=== PATIENT | female | born 1950 | race Caucasian/White ===

== ENCOUNTER 2020-01-28 20:41 | Observation (INO) | payer MEDICARE, SELFPAY ==
--- NOTE | ~2020-01-28 | CT_ITS ---
EXAMINATION: CT brain wo con DATE: 01/28/2020 22:34 INDICATION: Dizziness TECHNIQUE: Computed tomography (CT) of the head was performed without intravenous contrast. Sagittal and coronal reconstructions were performed. The mA was adjusted according to patient size. Iterative reconstruction technique was employed. The dose-length product was 605.33 mGy-cm. COMPARISON: None FINDINGS: There is mild scattered white matter hypoattenuation consistent with chronic small vessel ischemic di sease. No acute intracranial hemorrhage, acute infarction or abnormal extra axial fluid collection. V entricles are normal and symmetric. No mass/mass effect. The orbits, paranasal sinuses and mastoid ai r cells are normal. Intracranial calcified cerebral atherosclerosis is noted. IMPRESSION: 1. No acute intracranial process. 2. Mild scattered white matter hypoattenuation consistent with chronic small vessel ischemic disease. Reviewed, dictated and finalized at location A. IMPRESSION: 1. No acute intracranial process. 2. Mild scattered white matter hypoattenuation consistent with chronic small ve ssel ischemic disease.
--- NOTE | ~2020-01-28 | US_ITS ---
EXAMINATION: US carotid duplex BI DATE: 01/29/2020 16:19 INDICATION: Dizziness. TECHNIQUE: Grayscale, color Doppler, and pulsed Doppler images of the cervical carotid arteries were obtained. The degree of vessel stenosis is placed in one of the following categories: normal, <50%, 5 0-69%, >=70% but less than near-occlusion, near-occlusion, or total occlusion. Note that percent sten osis relative to normal distal artery lumen diameter is indirectly measured from velocity measurement s as described by Sameer, et al. Radiology 2003; [id number]:340-346. COMPARISON: None. FINDINGS: RIGHT: The right common carotid artery (CCA) peak systolic velocity (PSV) is 102 cm/s. The right internal ca rotid artery (ICA) PSV is 112 cm/s. The right ICA end-diastolic velocity (EDV) is 36 cm/s. The right ICA/CCA PSV ratio is 1.1. Grayscale and color Doppler images yield an estimate of <50% diameter reduc tion from plaque in the ICA. There is antegrade flow in the right vertebral artery. LEFT: The left CCA PSV is 106 cm/s. The left ICA PSV is 110 cm/s. The left ICA EDV is 32 cm/s. The left ICA /CCA PSV ratio is 1.0. Grayscale and color Doppler images yield an estimate of <50% diameter reductio n from plaque in the ICA. There is antegrade flow in the left vertebral artery. IMPRESSION: 1. <50% stenosis in the right internal carotid artery. 2. <50% stenosis in the left internal carotid artery. Reviewed, dictated and finalized at location A.
--- NOTE | ~2020-01-28 | XR_ITS ---
EXAMINATION: XR chest 1V portable DATE: 01/28/2020 21:14 INDICATION: Cough and shortness of breath. TECHNIQUE: A single frontal view of the chest was obtained. COMPARISON: CT abdomen and pelvis 01/25/2015 FINDINGS: The chest demonstrates clear lungs without pneumonia, pleural effusion, or pneumothorax. Th e heart size is normal. IMPRESSION: 1. No acute cardiopulmonary disease. Reviewed, dictated and finalized at location A.
[2020-01-28 20:43] VITALS: BP 140/80; PULSE 82; RESP 25; TEMP 36.5; O2SAT 100
--- NOTE | 2020-01-28 20:45 | ECG_ITS ---
Measurements Intervals [place] Rate: 81 P: 46 VT: 125 QRS: 20 QRSD: 85 T: 51 QT: 404 QTc: 470 Interpretive Statements SINUS RHYTHM BORDERLINE ST ABNORMALITY- LATERAL LEADS BASELINE ARTIFACT- I, III, AVR, AVL, AVF BORDERLINE ECG Electronically Signed On 02-02-2020 7:04:21 CDT by Santhosh Donovan D.O.
--- NOTE | 2020-01-28 20:47 | ED.SOB ---
HPI - SOB/Dyspnea General Chief Complaint: Shortness of Breath/Dyspnea Stated Complaint: resp sx Time Seen by Provider: 01/28/20 20:41 Source: patient and RN notes reviewed Mode of arrival: EMS Limitations: no limitations History of Present Illness HPI Narrative: Pt is a 69 y/o female who presents to the ED via EMS with c/o SOB starting 2 days ago. She notes that she currently works as a nurse at [employer], and states that she has recently been around several sick patients. Pt notes that none of her patients have received a positive test for the novel coronavirus. She states that she has had SOB, rhinorrhea, a nonproductive cough, and myalgias for the past 2 days. Pt notes that she has a Hx of vertigo, and states that she developed dizziness with associated nausea and vomiting around 17:00 this evening. She notes that she took 2 doses of Antivert this evening, but denies having any relief of her symptoms. She states that she has been taking her axillary temperature for the past several days, and denies having any actual fever. MD elicited complaint: shortness of breath Onset (ago): day(s) (2) Context: other (contact with sick patients) Associated symptoms: cough, nausea/vomiting, dizziness and other (rhinorrhea; myalgias) Related Data Home Medications Medication Instructions Recorded Confirmed Unable to Obtain Home Medications 10/21/19 10/21/19 Allergies Allergy/AdvReac Type Severity Reaction Status Date / Time ibuprofen Allergy Unknown unknown Verified 12/15/19 09:48 meperidine Allergy Unknown unknown Verified 12/15/19 09:48 Review of Systems Review of Systems: All systems reviewed & are unremarkable except as noted in HPI and below Constitutional: Constitutional: Denies fever(s) ENT: Reports nasal discharge Respiratory: Respiratory: Reports cough and Reports dyspnea Gastrointestinal: Gastrointestinal: Reports nausea and Reports vomiting Musculoskeletal: Musculoskeletal: Reports myalgias Neurologic: Reports dizziness PMFSH Past Medical History Medical History Anemia Arm fracture, left Back pain Degenerative joint disease of knee GERD (gastroesophageal reflux disease) History of rectal polyps Inguinal hernia Left knee pain Melena Otitis media Right arm fracture Vertigo Surgical History Surgical History History of bunionectomy of left great toe History of hysterectomy Hx of cholecystectomy Hx of colonoscopy with polypectomy Hx of gastric bypass Hx of inguinal hernia repair Hx of right breast biopsy Hx of tonsillectomy Hx of tubal ligation Social History Social History Smoking status: Former smoker Second hand tobacco smoke exposure: Yes Smoking end date: 11/02/96 Alcohol intake: current Exam Narrative: Exam Narrative: GENERAL: Uncomfortable-appearing, well-nourished, and in no acute distress. HEAD: Normocephalic, atraumatic. EYES: PERRL and EOMI. right gaze nystagmus noted. ENT: Mucous membranes moist. TMs normal bilaterally. CHEST: Clear to auscultation. No respiratory distress. HEART: Regular rate and rhythm. Normal peripheral pulses. ABDOMEN: Soft, nontender, nondistended. EXTREMITIES: Normal range of motion. No edema. NEURO: Alert and oriented x3. PSYCH: Normal mood and affect. Course Course Emergency Course: Patient received some Valium for vertigo since she is taken a couple home doses of Antivert. She is also received IV fluid and zofran. Patient's retching has decreased but still reports dizziness and nausea. Patient is able to ambulate around the room with a guarded gait. Should hold her hand out towards a wall to balance her self. SOA sees to be related to the nausea and anxiousness for her vertigo. Admit to hospitalist service for observation. Vital Signs Vital signs: Vital Signs Temperature 97.7 F
[2020-01-28 20:57] LABS: Basophils Absolute Auto 0.1 K/mm3 (0.0-0.1); Basophils Percent Auto 0.4 % (0.2-1.2); Eosinophils Absolute Auto 0.1 K/mm3 (0-0.3); Eosinophils Percent Auto 0.5 % (0-4.4); Hematocrit 35.7 % (37.0-47.0); Hemoglobin 10.7 g/dL (12.0-15.0); Immature Granulocyte Absolute 0.06 K/mm3 (0.00-0.031); Immature Granulocyte Percent A 0.4 % (0-0.5); Lymphocytes Absolute Auto 2.17 K/mm3 (0.9-3.2); Lymphocytes Percent Auto 15.9 % (18.3-44.2); Mean Corpuscular Hemoglobin 24.5 pg (26-34); Mean Corpuscular Volume 81.7 fl (80-100); Mean Platelet Volume 10.9 fl (7.4-10.4); Monocytes Absolute Auto 0.7 K/mm3 (0.1-0.6); Monocytes Percent Auto 4.8 % (2.6-8.5); Neutrophils Absolute Auto 10.7 K/mm3 (1.3-6.7); Platelet Count Result 348 k/mm3 (150-375); Red Blood Count 4.37 M/mm3 (4.2-5.4); Red Cell Distribution Width 16.5 % (11.5-14.5); White Blood Count 13.7 K/mm3 (4.5-10.0)
[2020-01-28] MEDS: SODIUM CHLORIDE 0.9% IV 1,000 ML 999 ML IV CONT (20:57)
[2020-01-28] MEDS: ONDANSETRON INJ 4 MG/2 ML VIAL IV PUSH (20:58)
[2020-01-28 21:08] LABS: Alanine Aminotransferase 13 U/L (4-35); Albumin Level 4.3 g/dL (3.5-5.1); Alkaline Phosphatase 218 U/L (38-126); Aspartate Amino Transferase 20 U/L (14-36); Bilirubin,Total 0.2 mg/dL (0.2-1.3); Blood Urea Nitrogen 7 mg/dL (7-17); Carbon Dioxide 21 mmol/L (22-30); Chloride 107 mmol/L (98-107); Estimated CRCL calculation 119 ml/min; Estimated Glomerular Filt Rate > 60; Glucose 144 mg/dL (65-105); Potassium 3.7 mmol/L (3.4-5.0); Sodium 140 mmol/L (137-145)
[2020-01-28 23:13] VITALS: BP 140/64; PULSE 68; RESP 14; TEMP 36.9; O2SAT 94
[2020-01-28 23:40] VITALS: BP 180/98; PULSE 79; RESP 18; TEMP 36.3; O2SAT 98; BMI 39.9
--- NOTE | 2020-01-29 00:13 | ADMGEN ---
This patient, Rosalinda Wilkes, was admitted to [facility] Surg Room 330-01 at 2340. Patient/family oriented to hospital policies and general routines including ID bracelet, bed and alarms, visiting hours, pain management, procedures, bathroom and other care routines, personal items, smoking policy, room service/diet, and visiting hours. Valuables list has been completed. Information on how to activate the Rapid Response Team has been discussed. Patient/Family are encouraged to report perceived risks to care and to ask questions if they do not understand what they are told or what they should do.
[2020-01-29] MEDS: PROMETHAZINE HCL 25 MG/ML AMPUL 12.5 MG IV PUSH ×2 (00:36→06:39)
[2020-01-29] MEDS: SODIUM CHLORIDE 0.9% IV 1,000 ML 125 ML IV CONT ×2 (00:37→11:41)
--- NOTE | 2020-01-29 00:53 | PM.IMHP ---
H&P: HPI History of Present Illness Chief complaint: vertigo Narrative: This is a 69 year old female who is known to have motion sickness and who presented to the hospital today with a complaint of ongoing dizziness that she has had all day long. 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 She relates that she noticed she had a low grade fever of 99.9 F axillary. The patient today started to develop severe dizziness this evening with associate nausea and vomiting. Any head movement exacerbated her symptoms and she only got mild relief by sitting still with her eyes closed. The patient was treated in the ER with mecilizine and diazepam but continues to be very dizzy. She denies any chest pain, palpitations, abdominal pain, diarrhea, dysuria, hematuria or rectal bleeding. The patient was admitted to the hospital for intractable vertigo and placed on droplet isolation. She denies that any of her patients at the alf have tested postiive for COVID-19 to her knowledge. No other complaints. Review of Systems Review of Systems: All systems reviewed & are unremarkable except as noted in HPI and below PMFSH Past Medical History Medical History Anemia Arm fracture, left Back pain Degenerative joint disease of knee GERD (gastroesophageal reflux disease) History of rectal polyps Inguinal hernia Left knee pain Melena Otitis media Right arm fracture Vertigo Surgical History Surgical History History of bunionectomy of left great toe History of hysterectomy Hx of cholecystectomy Hx of colonoscopy with polypectomy Hx of gastric bypass Hx of inguinal hernia repair Hx of right breast biopsy Hx of tonsillectomy Hx of tubal ligation Family History Family History Father Family history of diabetes mellitus in first degree relative Mother Family history of malignant neoplasm of breast in first degree relative Patient's mother is Other Family history of malignant neoplasm Social History Social History Smoking packs per day: 1 Smoking cigarettes per day: 20.0 Years smoked: 15 Smoking pack-years: 15.00 Smoking status: Former smoker Tobacco type: cigarettes Second hand tobacco smoke exposure: Yes Smoking end date: 11/02/96 Alcohol intake: never Substance use: never Gender identity (if verbalized by the patient): Female Spiritual care concerns: No Agree to blood products: Yes Meds Home Medications and Allergies Home Medications Medication Instructions Recorded Confirmed Type acetaminophen [Tylenol Extra 1,000 mg PO TID PRN 01/29/20 01/29/20 History Strength] guaifenesin [Mucinex] 600 mg PO Q12H PRN 01/29/20 01/29/20 History Allergies Allergy/AdvReac Type Severity Reaction Status Date / Time meperidine Allergy Mild unknown Verified 01/29/20 00:32 ibuprofen AdvReac Unknown unknown Verified 01/29/20 00:32 Vital Signs Vital Signs - 24 hr 01/28/20 20:43 01/28/20 23:13 01/28/20 23:40 Temperature 36.5 C 36.9 C 36.3 C L Pulse Rate 82 68 79 Respiratory Rate 25 H 14 18 Blood Pressure 140/80 140/64 180/98 H Pulse Oximetry 100 94 98 Exam Const: General: cooperative, alert, awake and acute distress (dizziness++ ) moderate Nutritional Appearance: obese Orientation/consciousness: patient oriented x3 HENMT: Head: normal to inspection General nose exam: Normal external nose present Face and sinus: normal facial exam Mouth: Yes dry mucous membranes Eyes: Pupils: Equal, round and reactive pupils present EOM: EOMs intact bilaterally Neck: Neck: supple and no JVD Thyroid:
[2020-01-29] MEDS: hydrALAZINE HCL 20 MG/ML VIAL 10 MG IV PUSH (01:09)
[2020-01-29] MEDS: MECLIZINE HCL 25 MG TABLET PO ×4 (01:09→16:59)
[2020-01-29] MEDS: ACETAMINOPHEN 325 MG TABLET 650 MG PO ×2 (01:14→16:59)
[2020-01-29 05:53] LABS: Basophils Percent Auto 0.2 % (0.2-1.2); Eosinophils Percent Auto 0.2 % (0-4.4); Hematocrit 31.6 % (37.0-47.0); Hemoglobin 9.5 g/dL (12.0-15.0); Immature Granulocyte Absolute 0.03 K/mm3 (0.00-0.031); Immature Granulocyte Percent A 0.3 % (0-0.5); Lymphocytes Absolute Auto 1.79 K/mm3 (0.9-3.2); Lymphocytes Percent Auto 17.1 % (18.3-44.2); Mean Corpuscular HGB Conc 30.1 g/dl (32-36); Mean Corpuscular Hemoglobin 24.5 pg (26-34); Mean Corpuscular Volume 81.7 fl (80-100); Mean Platelet Volume 11.1 fl (7.4-10.4); Monocytes Absolute Auto 0.8 K/mm3 (0.1-0.6); Monocytes Percent Auto 7.2 % (2.6-8.5); Neutrophils Absolute Auto 7.9 K/mm3 (1.3-6.7); Platelet Count Result 303 k/mm3 (150-375); Red Blood Count 3.87 M/mm3 (4.2-5.4); Red Cell Distribution Width 16.4 % (11.5-14.5); White Blood Count 10.5 K/mm3 (4.5-10.0)
[2020-01-29 06:00] VITALS: BP 124/64; PULSE 92; RESP 18; TEMP 36.4; O2SAT 96
[2020-01-29 06:17] LABS: Blood Urea Nitrogen 5 mg/dL (7-17); Calcium 8.5 mg/dL (8.4-10.2); Carbon Dioxide 26 mmol/L (22-30); Chloride 111 mmol/L (98-107); Estimated CRCL calculation 116 ml/min; Estimated Glomerular Filt Rate > 60; Glucose 109 mg/dL (65-105); Potassium 3.5 mmol/L (3.4-5.0); Sodium 141 mmol/L (137-145)
--- NOTE | 2020-01-29 13:55 | PM.IMPN ---
Progress Note: A&P Assessment and Plan (1) Dizziness: Code(s): R42 - Dizziness and giddiness Status: Acute Assessment and Plan: Intractable vetigo is likely secondary to inner ear inflammation from viral syndrome - Admit for observation. Continue symptomatic treatment w/ meclizine and valium. Fall precautions. Neurology consult in am. Date of Service: 01/29/2020. Admitted with sepsis and pneumonia. Patient is from a assisted. Known Down's syndrome, intellectual disability with occasional behavioral disturbances, dementia, seizure disorder and CKD stage 3. COVID testing is negative transfer to medical floor. Pt is pleasant no acute compliants. Pt still tired with mild cough unable to provide detailed review of symptoms, however repeat chest x-ray on 01/26 shows improvement white counts are now baseline and he has not had any fever will continue to monitor overnight and possibly discharge him in the morning (2) Viral syndrome: Code(s): B34.9 - Viral infection, unspecified Status: Acute Assessment and Plan: r/o Covid-19 vs. viral URI - Continue droplet isolation. Check quest COVID-19. Continue supportive care. (3) HTN (hypertension) with goal to be determined: Code(s): I10 - Essential (primary) hypertension Status: Acute Assessment and Plan: acute vs. chronic? Monitor blood pressure. PRN hydralazine w/ parameters ordered. 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, low grade fever for last 2 days, since patient works as a long-term there is high risk of possible Covid 19, and patient is placed on droplet precaution, also complaints of dizziness and nausea and vomiting her dizziness gets worse with movement and has been persisting on and off for sometime, she had a CT scan of the head which is negative for any acute injury, further states has never had cardiac echo or carotid ultrasound to further evaluate, will have PT OT evaluate the patient Review of Systems Review of Systems: All systems reviewed & are unremarkable except as noted in HPI and below Exam Narrative: Exam Narrative: Moderately obese Const: General: no acute distress and uncomfortable HENMT: General nose exam: Normal nares present Mouth: Yes moist mucous membranes Eyes: General: appearance normal, both eyes and all related structures Sclera: sclerae normal Neck: Neck: supple Resp: Effort & Inspection: normal respiratory effort Other: Bilateral fair air entry with minimal rales and rhonchi Cardio: Rate: regular rate Rhythm: regular rhythm GI: Auscultation: normal bowel sounds Skin: General skin exam: normal color Neuro: Speech: normal speech Sensory Exam: normal sensation Extrem: General: normal to inspection Psych: Affect: Anxious affect present Objective Data Vital Signs Vital Signs: Vital Signs - 24 hr 01/28/20 20:43 01/28/20 23:13 01/28/20 23:40 Temperature 97.7 F 98.5 F 97.4 F L Pulse Rate 82 68 79 Respiratory Rate 25 H 14 18 Blood Pressure 140/80 140/64 180/98 H Pulse Oximetry 100 94 98 01/29/20 06:00 Temperature 97.6 F Pulse Rate 92 Respiratory Rate 18 Blood Pressure 124/64 Pulse Oximetry 96 Intake/Output Intake/Output: Intake & Output 01/26/20 01/27/20 01/28/20 01/29/20 23:59 23:59 23:59 23:59 Intake Total 1000 1260 Output Total 1100 Balance 1000 160 Meds/Results Medications: Active Medications Generic Name Dose Route Start Last Admin Trade Name Freq PRN Reason Stop Dose Admin Acetaminophen 650 mg 01/28/20 22:48 01/29/20 01:14 Tylenol Tablet PO 650 mg Q4H PRN Administration Mild Pain (1-3) or Fever Acetaminophen 650 mg 01/29/20 00:50 Tylenol Tablet PO Q4H PRN Mild Pain (1-3) or Fever Hydrocodone Bitart/Acetaminophen 1 tab 01/28/20 22:48 01/29/20 06:39 [place] 5-325 Mg PO 1 tab Q4H PRN Admin
[2020-01-29 14:00] VITALS: BP 184/83; PULSE 82; RESP 18; TEMP 36.3; O2SAT 96
[2020-01-29 22:00] VITALS: BP 145/75; PULSE 74; RESP 18; TEMP 36.3; O2SAT 98
--- NOTE | 2020-01-30 | ECHO_ITS ---
Patient Info Name: Rosalinda Wilkes Age: 69 years : 1950 Gender: Female Ht: 66 in Wt: 247 lbs BSA: 2.34 m2 HR: 80 bpm BP: 184 / 83 mmHg Heart Rhythm: Sinus Rhythm Technical Quality: Good Exam Date: 01/30/2020 9:10 AM Exam Location: [facility] Pulmonary Patient Status: Inpatient Admit Date: 01/28/2020 Staff Ordering Physician: Cheri Mae MD Therapy Director: Tommie Umana RDCS Attending Provider: Sony Gallego MD Exam Type: CA echo doppler color flow Study Info Indications 386.2 - Vertigo of Central Origin Complete two-dimensional, color flow and Doppler transthoracic echocardiogram is performed. Strain analysis performed. History/Risk Factors Vertigo; HTN. Summary 1. Left ventricular chamber dimension is normal. 2. Left ventricular systolic function is normal, estimated at 65-70%. 3. There is mildly increased left ventricular wall thickness. 4. The left ventricular diastolic function is grade I diastolic dysfunction. 5. E/e' 11 is mildly elevated. 6. Global longitudinal strain is normal at -20.0%. Left Ventricle E/e' 11 is mildly elevated. Global longitudinal strain is normal at -20.0%. Left ventricular chamber dimension is normal. Left ventricular systolic function is normal, estimated at 65-70%. There is mildly increased left ventricular wall thickness. The left ventricular diastolic function is grade I diastolic dysfunction. Right Ventricle Right ventricular chamber dimension is normal. Right ventricular systolic function is normal. Left Atria Left atrial chamber dimension is normal. Right Atria Right atrial chamber dimension is normal. Aortic Valve The aortic valve is probable trileaflet. There is no aortic valve stenosis. There is no aortic valve regurgitation. Pulmonic Valve There is no pulmonic regurgitation. Mitral Valve There is no mitral valve stenosis. There is no mitral valve regurgitation. Tricuspid Valve There is no tricuspid valve regurgitation. Pericardium/Pleural There is no pericardial effusion. Inferior Vena Cava Normal inferior vena cava with >50% collapse upon inspiration consistent with normal right atrial pressure, 5 mmHg. Aorta The aortic root size at the sinus of Valsalva is normal. Left Ventricular Outflow Tract Name Value Normal LVOT 2D LVOT Diameter 1.9 cm LVOT Doppler LVOT Peak Gradient 7 mmHg LVOT Mean Gradient 3 mmHg LVOT VTI 26 cm LVOT VTI/AV VTI Ratio 0.6 LVOT Stroke Volume 71 ml LVOT CO 5.7 l/min LVOT CI 2.4 l/min/m2 Mitral Valve Name Value Normal MV Doppler MV Decel [place] 351 cm/s2 MV PHT
[2020-01-30] MEDS: SODIUM CHLORIDE 0.9% IV 1,000 ML 125 ML IV CONT ×2 (05:03→10:10)
[2020-01-30] MEDS: hydrALAZINE HCL 20 MG/ML VIAL 10 MG IV PUSH (05:04)
[2020-01-30] MEDS: ACETAMINOPHEN 325 MG TABLET 650 MG PO ×2 (05:04→10:10)
[2020-01-30 06:00] VITALS: BP 168/70; PULSE 74; RESP 18; TEMP 36.6; O2SAT 97
[2020-01-30 06:21] LABS: Hematocrit 31.7 % (37.0-47.0); Hemoglobin 9.5 g/dL (12.0-15.0); Mean Corpuscular Hemoglobin 24.7 pg (26-34); Mean Corpuscular Volume 82.6 fl (80-100); Mean Platelet Volume 10.1 fl (7.4-10.4); Platelet Count Result 257 k/mm3 (150-375); Red Blood Count 3.84 M/mm3 (4.2-5.4); Red Cell Distribution Width 16.5 % (11.5-14.5); White Blood Count 7.8 K/mm3 (4.5-10.0)
[2020-01-30 06:29] LABS: Blood Urea Nitrogen 2 mg/dL (7-17); Calcium 8.3 mg/dL (8.4-10.2); Carbon Dioxide 29 mmol/L (22-30); Chloride 109 mmol/L (98-107); Estimated CRCL calculation 98 ml/min; Estimated Glomerular Filt Rate > 60; Glucose 98 mg/dL (65-105); Potassium 3.3 mmol/L (3.4-5.0); Sodium 139 mmol/L (137-145)
[2020-01-30] MEDS: MECLIZINE HCL 25 MG TABLET PO (09:50)
[2020-01-30] MEDS: POTASSIUM CHLORIDE 20 MEQ TABLET 40 MEQ PO (09:51)
--- NOTE | 2020-01-30 11:26 | PM.DS ---
DS: Diagnosis Admitting Diagnosis Admitting Diagnosis: Dizziness and giddiness Discharge Diagnosis (1) Dizziness: Code(s): R42 - Dizziness and giddiness Status: Acute Assessment and Plan: Intractable vetigo is likely secondary to inner ear inflammation from viral syndrome - Admit for observation. Continue symptomatic treatment w/ meclizine and valium. Fall precautions. Neurology consult in am. This is a 69 year old female who is known to have motion sickness and who presented to the hospital today with a complaint of ongoing dizziness that she has had all day long. 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 She relates that she noticed she had a low grade fever of 99.9 F axillary. The patient today started to develop severe dizziness this evening with associate nausea and vomiting. Any head movement exacerbated her symptoms and she only got mild relief by sitting still with her eyes closed. The patient was treated in the ER with mecilizine and diazepam but continues to be very dizzy. She denies any chest pain, palpitations, abdominal pain, diarrhea, dysuria, hematuria or rectal bleeding. The patient was admitted to the hospital for intractable vertigo and placed on droplet isolation. She denies that any of her patients at the [facility] have tested postiive for COVID-19 to her knowledge. No other complaints. (2) Viral syndrome: Code(s): B34.9 - Viral infection, unspecified Status: Acute Assessment and Plan: r/o Covid-19 vs. viral URI - Continue droplet isolation. Check quest COVID-19. Continue supportive care. (3) HTN (hypertension) with goal to be determined: Code(s): I10 - Essential (primary) hypertension Status: Acute Assessment and Plan: acute vs. chronic? Monitor blood pressure. PRN hydralazine w/ parameters ordered. DS: Summary Hospital Course Reason for hospitalization: This is a 69 year old female who is known to have motion sickness and who presented to the hospital today with a complaint of ongoing dizziness that she has had all day long. 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 She relates that she noticed she had a low grade fever of 99.9 F axillary. The patient today started to develop severe dizziness this evening with associate nausea and vomiting. Any head movement exacerbated her symptoms and she only got mild relief by sitting still with her eyes closed. The patient was treated in the ER with mecilizine and diazepam but continues to be very dizzy. She denies any chest pain, palpitations, abdominal pain, diarrhea, dysuria, hematuria or rectal bleeding. The patient was admitted to the hospital for intractable vertigo and placed on droplet isolation. She denies that any of her patients at the [facility] have tested postiive for COVID-19 to her knowledge. No other complaints. Hospital Course: Intractable vetigo is likely secondary to inner ear inflammation from viral syndrome - Admit for observation. Continue symptomatic treatment w/ meclizine and valium. Fall precautions. Neurology consult in am. This is a 69 year old female who is known to have motion sickness and who presented to the hospital today with a complaint of ongoing dizziness that she has had all day long. 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 She relates that she noticed she had a low grade fever of 99.9 F axillary. The patient
--- NOTE | 2020-01-30 11:28 | CONS_ITS ---
DATE OF CONSULTATION: 01/28/2020 This 69 years old right-handed female has been admitted to [facility] through the emergency room for the complaint of vertiginous dizziness. The patient is known to have the dizziness and works at the [employer] as a nurse, but over the last 48 hours, she was having increasing upper respiratory symptoms along with the sore throat, nonproductive cough, congestion, myalgia, and a low-grade temperature of 99.9. She also became extremely dizzy with nausea and vomiting and any kind of movements exacerbated her symptomatology. In the ER, she received meclizine and diazepam, but continued to be very dizzy, though she had no other generalized symptomatology. She also gave information that no patient in the custodial was positive for COVID-19 where she works. PAST MEDICAL HISTORY: She has ongoing history of, 1. Anemia. 2. Fracture of left upper extremity. 3. Degenerative joint disease. 4. GERD. 5. Rectal polyp. 6. Inguinal hernia. 7. Melena. 8. Right otitis media. 9. Right arm fracture. 10. Vertigo. PAST SURGICAL HISTORY: In the past, she has undergone bunionectomy of left great toe, hysterectomy, cholecystectomy, polypectomy, gastric bypass, inguinal hernial repair, right breast biopsy, tonsillectomy, tubal ligation. SOCIAL HISTORY: Years smoked 15, with smoking pack years of 15. She is a former smoker. She is close to the second hand smoke. She does not drink. MEDICATIONS: She is taking only Tylenol, guaifenesin as an outpatient. ALLERGIES: SHE IS ALLERGIC TO MEPERIDINE AND IBUPROFEN. PHYSICAL EXAMINATION: VITAL SIGNS: On evaluation, she has been found to be afebrile with pulse 82, respirations 25, which has come down to 14, and blood pressure 140/80 with pulse ox 100%. GENERAL: She is awake, alert, cooperative, in no obvious acute distress. HEAD: Normocephalic with no cranial bruit. EAR, NOSE, THROAT: Normal. NECK: Supple. HEART: Regular. LUNGS: Clear. ABDOMEN: Soft. NEUROLOGICAL: Normal mental status. Normal speech. The cranial nerve exam is normal. Motor and sensory exam normal. Reflexes symmetrical. Plantar downgoing. LABORATORY DATA: Evaluation up until now revealed normal CBC, normal basic metabolic panel, normal hepatic enzymes, negative chest x-ray, negative CT scan of the head. IMPRESSION AND PLAN: Most likely generalized symptomatology because underlying URI. COVID is pending. The patient can be discharged home. She was given instruction to stay in bed, drink extra amount of fluid, have some help at home, which she has, so that she can stay in bed and have the rest. When the viral study comes back, she will be informed so that she can return to work or not return to work. Treatment will be as such. MARIBEL DHILLON M.D. [employer] GR[employer]ER CNC GRINDER D I MT: [place]
[2020-01-31 07:34] LABS: Pan-SARS RNA: Negative; SARS-CoV-2 RNA: Negative
--- NOTE | 2020-01-31 10:39 | PC.NURSE ---
Received call from Vance García, RN, infection control nurse. Patients COVID swab was negative. Information given to Dr. Gallego and Dr. Mae.
== END 2020-01-30 12:43 | disposition home or self-care (01) ==
LOC: ANHED 22:50 → ANH3MEDSUR 23:05
PROVIDERS: Admitting Provider Family Medicine; Emergency Provider Emergency Medicine; PCP Family Medicine; Visit Provider Family Medicine
DX: R42 Dizziness and giddiness (principal); B34.9 Viral infection, unspecified; I10 Essential (primary) hypertension; Z87.891 Personal history of nicotine dependence; Z20.828 Contact with and (suspected) exposure to other viral communicable diseases
CPT/HCPCS: 36415; 70450; 71045; 80048; 80053; 85025; 85027; 87635; 87804; 93005; 93306; 93880; 96361; 96374; 96375; 96376; 99285; A9270; G0378; J0360; J2405; J2550; J3360; J7030; U0002